=== PATIENT | female | born 1940 | race Caucasian/White ===

== ENCOUNTER 2016-08-24 | Outpatient (CLI) | payer MEDICARE, OTHER | END 2016-08-24 11:45 | disposition home or self-care (01) | DX: R42 Dizziness and giddiness (principal) ==

== ENCOUNTER 2016-09-28 | Outpatient (CLI) | payer MEDICARE, OTHER | END 2016-09-28 22:00 | disposition critical access hospital (66) | DX: F41.9 Anxiety disorder, unspecified (principal) | CPT/HCPCS: A0425; A0429 ==

== ENCOUNTER 2016-09-28 13:41 | Outpatient (CLI) | payer MEDICARE, OTHER | END 2016-09-28 13:42 | disposition home or self-care (01) | DX: E11.9 Type 2 diabetes mellitus without complications (principal); E55.9 Vitamin D deficiency, unspecified ==

== ENCOUNTER 2016-09-28 22:19 | Emergency (ER) | payer MEDICARE, OTHER | END 2016-09-28 23:55 | disposition home or self-care (01) | DX: R42 Dizziness and giddiness (principal); T44.3X5A Adverse effect of other parasympatholytics [anticholinergics and antimuscarinics] and spasmolytics, initial encounter; F41.0 Panic disorder [episodic paroxysmal anxiety]; E11.9 Type 2 diabetes mellitus without complications; I10 Essential (primary) hypertension; Z79.4 Long term (current) use of insulin; Z86.73 Personal history of transient ischemic attack (TIA), and cerebral infarction without residual deficits; E55.9 Vitamin D deficiency, unspecified ==

== ENCOUNTER 2016-10-15 13:30 | Outpatient (CLI) | payer MEDICARE, OTHER | END 2016-10-15 13:31 | disposition home or self-care (01) | DX: Z12.31 Encounter for screening mammogram for malignant neoplasm of breast (principal) ==

== ENCOUNTER 2016-10-30 13:46 | Outpatient (CLI) | payer MEDICARE, OTHER | END 2016-10-30 13:47 | disposition home or self-care (01) | DX: I77.9 Disorder of arteries and arterioles, unspecified (principal); I73.9 Peripheral vascular disease, unspecified; I70.1 Atherosclerosis of renal artery; I10 Essential (primary) hypertension; E78.2 Mixed hyperlipidemia ==

== ENCOUNTER 2016-11-08 08:36 | Outpatient (CLI) | payer MEDICARE, OTHER | END 2016-11-08 08:37 | disposition home or self-care (01) | DX: I77.9 Disorder of arteries and arterioles, unspecified (principal); I10 Essential (primary) hypertension; I73.9 Peripheral vascular disease, unspecified; I70.1 Atherosclerosis of renal artery; E78.2 Mixed hyperlipidemia ==

== ENCOUNTER 2017-01-01 13:20 | Outpatient (CLI) | payer MEDICARE, OTHER ==
[2017-01-01 19:52] LABS: CALCIUM 9.2 mg/dL (8.5-10.3); CREATININE 0.7 mg/dL (0.4-1.0); POTASSIUM 3.8 mmol/L (3.5-5.0)
[2017-01-01 19:55] LABS: HEMOGLOBIN A1C 0.81 g/dL
== END 2017-01-01 13:21 | disposition home or self-care (01) ==
LOC: LAB.N 13:20
PROVIDERS: ATTEND Family Medicine
DX: E11.9 Type 2 diabetes mellitus without complications (principal)
CPT/HCPCS: 36415; 80048; 83036

== ENCOUNTER 2017-02-18 20:26 | Outpatient (CLI) | payer MEDICARE, OTHER ==
[2017-02-18 19:23] LABS: CREATININE 0.6 mg/dL (0.4-1.0)
== END 2017-02-18 20:27 | disposition home or self-care (01) ==
LOC: LAB.N 20:26
PROVIDERS: ATTEND Psychiatry & Neurology Neurology
DX: G43.719 Chronic migraine without aura, intractable, without status migrainosus (principal); M79.2 Neuralgia and neuritis, unspecified; H81.10 Benign paroxysmal vertigo, unspecified ear; I65.21 Occlusion and stenosis of right carotid artery; T88.7XXA Unspecified adverse effect of drug or medicament, initial encounter
CPT/HCPCS: 36415; 82565; 84520

== ENCOUNTER 2017-03-29 14:35 | Outpatient (CLI) | payer MEDICARE, OTHER ==
[2017-03-29 18:41] LABS: CREATININE 0.8 mg/dL (0.4-1.0)
[2017-03-29] MEDS ORDERED: IOPAMIDOL-300 100 ML VIAL IVP ONE (20:12)
--- NOTE | 2017-03-30 07:28 | CT Preliminary Report ---
Exam: CT Neck Angio Impressions: CT angiogram head: 1. Left ICA: Patent. Mild scattered calcific atherosclerotic disease without significant stenosis. 2. Right ICA: Patent, mild scattered calcific atherosclerotic disease. Short segment critical stenosi s 2.5 mm in length right M1 mid distal segment. Otherwise patent MCA, DARÍO. 3. Posterior circulation: Patent. 4. No aneurysm, dissection, or AVM. 5. Patent major draining veins. CT angiogram neck: 1. Left carotid artery: Patent with mild calcific atherosclerotic disease, no stenosis. 2. Right carotid artery: Patent, mild dense calcific atherosclerotic disease, 21% stenosis proximal I CA. 3. Bilateral vertebral arteries are patent. 4. No aneurysm, dissection, no significant stenosis, no AVM. 5. Multiple hypodense nodules within bilateral thyroid, thyroid not enlarged. Largest nodule in the l eft 1.4 cm, can be evaluated by ultrasound. Remaining soft tissue neck negative. [facility] SITE ID: [id number]
--- NOTE | 2017-03-30 07:31 | CT Report ---
EXAM: CT ANGIOGRAM HEAD AND NECK EXAM DATE: 03/29/2017 08:13 PM. CLINICAL HISTORY: STENOSIS OF RIGHT CAROTID ARTERY. COMPARISON: Prior carotid ultrasound 06/23/2016, prior MRI brain 06/23/2016, prior CT study had 06/22, prior MRA neck 01/10/2015. TECHNIQUE: Routine axial helical CTA imaging was performed from the aortic arch through the [place]. Iodinated IV contrast: 100 cc Isovue-300. Reconstructions: Routine multiplanar 3D MIP recons tructions. NASCET Criteria are used for stenosis measurements. In accordance with CT protocol optimization, one or more of the following dose reduction techniques w ere utilized for this exam: automated exposure control, adjustment of mA and/or KV based on patient s ize, or use of iterative reconstructive technique. Findings: Relevant images are indicated (image number, series number). CT angiogram head: Left ICA: Patent. Mild scattered calcific atherosclerotic disease. No significant stenosis. Patent MC A, DARÍO distribution. Right ICA: Patent. Mild scattered calcific atherosclerotic disease, otherwise patent to the terminus. Right MCA demonstrates mid distal multifocal narrowing, with suspected short segment near (493, 2) c ritical stenosis measuring 2.5 mm in length. 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 CT angiogram neck: Aortic arch is patent, normal configuration of the great vessels. Mild scattered calcific atheroscler otic disease. Left carotid artery: Patent, mildly dense calcific atherosclerotic disease at the bulb, proximal ICA, otherwise patent to the skull base. Right carotid artery: Patent to the carotid bulb. There is 21% focal stenosis of the proximal ICA, ot herwise patent. Lethargy were artery: Proximal tortuosity, widely patent. Right vertebral artery: Patent. Limited evaluation lung apices negative with only mild scattered centrilobular emphysema. Multiple hy podense nodules within the bilateral thyroid lobes left greater than right, the largest in the left m easuring 1.4 cm diameter. Airway patent, remaining soft tissue neck negative. Mild multilevel cervica l, upper thoracic spine spondylosis, no suspicious bony lesions. There is generalized osteopenia. Pat ient is partially edentulous. Impressions: CT angiogram head: 1. Left ICA: Patent. Mild scattered calcific atherosclerotic disease without significant stenosis. 2. Right ICA: Patent, mild scattered calcific atherosclerotic disease. Short segment critical stenosi s 2.5 mm in length right M1 mid distal segment. Otherwise patent MCA, DARÍO. 3. Posterior circulation: Patent. 4. No aneurysm, dissection, or AVM. 5. Patent major draining veins. CT angiogram neck: 1. Left carotid artery: Patent with mild calcific atherosclerotic disease, no stenosis. 2. Right carotid artery: Patent, mild dense calcific atherosclerotic disease, 21% stenosis proximal I CA. 3. Bilateral vertebral arteries are patent. 4. No aneurysm, dissection, no significant stenosis, no AVM. 5. Multiple hypodense nodules within bilateral thyroid, thyroid not enlarged. Largest nodule in the l eft 1.4 cm, can be evaluated by ultrasound. Remaining soft tissue neck negative. [facility] Referring Provider Line: [phone] SITE ID: [id number]
--- NOTE | 2017-03-30 07:32 | CT Preliminary Report ---
Exam: CT Head Angio Impressions: Noncontrast CT head: 1. 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 Postcontrast CT head: 1. No abnormal enhancement of the brain, meninges. CT angiogram head: 1. Left ICA: Patent. Mild scattered calcific atherosclerotic disease without significant stenosis. 2. Right ICA: Patent, mild scattered calcific atherosclerotic disease. Short segment critical stenosi s 2.5 mm in length right M1 mid distal segment. Otherwise patent MCA, DARÍO. 3. Posterior circulation: Patent. 4. No aneurysm, dissection, or AVM. 5. Patent major draining veins. CT angiogram neck: 1. Left carotid artery: Patent with mild calcific atherosclerotic disease, no stenosis. 2. Right carotid artery: Patent, mild dense calcific atherosclerotic disease, 21% stenosis proximal I CA. 3. Bilateral vertebral arteries are patent. 4. No aneurysm, dissection, no significant stenosis, no AVM. 5. Multiple hypodense nodules within bilateral thyroid, thyroid not enlarged. Largest nodule in the l eft 1.4 cm, can be evaluated by ultrasound. Remaining soft tissue neck negative. [facility] SITE ID: [id number]
--- NOTE | 2017-03-30 07:35 | CT Report ---
EXAM: CT ANGIOGRAM HEAD AND NECK EXAM DATE: 03/29/2017 08:13 PM. CLINICAL HISTORY: STENOSIS OF RIGHT CAROTID ARTERY. COMPARISON: Prior carotid ultrasound 06/23/2016, prior MRI brain 06/23/2016, prior CT study had 06/22, prior MRA neck 01/10/2015. TECHNIQUE: Routine axial helical CTA imaging was performed from the aortic arch through the [place]. Iodinated IV contrast: 100 cc Isovue-300. Reconstructions: Routine multiplanar 3D MIP recons tructions. NASCET Criteria are used for stenosis measurements. In accordance with CT protocol optimization, one or more of the following dose reduction techniques w ere utilized for this exam: automated exposure control, adjustment of mA and/or KV based on patient s ize, or use of iterative reconstructive technique. Findings: Relevant images are indicated (image number, series number). Noncontrast CT head: Compared with CT head 06/22/2016, no interval development of hemorrhage, mass or midline shift. Old l eft internal capsule stroke present. Moderate dense scattered periventricular, subcortical white jonah er disease. Minimal generalized atrophy, mild compensatory ventricular enlargement. No acute arterial thrombosis of the major intracranial arteries. Basal cisterns patent. Orbital contents negative, pat ient status post bilateral lens surgery. Bilateral mastoid air cells are clear. Skull base intact. Mi nimal dense calcific atherosclerotic disease present. Mild hyperostosis frontalis internus. Generaliz ed osteopenia, skull intact with no suspicious bony lesions. Postcontrast CT head: No abnormal enhancement of the brain, meninges. CT angiogram head: Left ICA: Patent. Mild scattered calcific atherosclerotic disease. No significant stenosis. Patent MC A, DARÍO distribution. Right ICA: Patent. Mild scattered calcific atherosclerotic disease, otherwise patent to the terminus. Right MCA demonstrates mid distal multifocal narrowing, with suspected short segment near (493, 2) c ritical stenosis measuring 2.5 mm in length. 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 CT angiogram neck: Aortic arch is patent, normal configuration of the great vessels. Mild scattered calcific atheroscler otic disease. Left carotid artery: Patent, mildly dense calcific atherosclerotic disease at the bulb, proximal ICA, otherwise patent to the skull base. Right carotid artery: Patent to the carotid bulb. There is 21% focal stenosis of the proximal ICA, ot herwise patent. Lethargy were artery: Proximal tortuosity, widely patent. Right vertebral artery: Patent. Limited evaluation lung apices negative with only mild scattered centrilobular emphysema. Multiple hy podense nodules within the bilateral thyroid lobes left greater than right, the largest in the left m easuring 1.4 cm diameter. Airway patent, remaining soft tissue neck negative. Mild multilevel cervica l, upper thoracic spine spondylosis, no suspicious bony lesions. There is generalized osteopenia. Pat ient is partially edentulous. Impressions: Noncontrast CT head: 1. 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 Postcontrast CT head: 1. No abnormal enhancement of the brain, meninges. CT angiogram head: 1. Left ICA: Patent. Mild scattered calcific atherosclerotic disease without significant stenosis. 2. Right ICA: Patent, mild scattered calcific atherosclerotic disease. Short segment critical stenosi s 2.5 mm in length right M1 mid distal segment. Otherwise patent MCA, DARÍO. 3. Posterior circulation: Patent. 4. No aneurysm, dissection, or AVM. 5. Patent major draining veins. CT angiogram neck: 1. Left carotid artery: Patent with mild calcific atherosclerotic disease, no stenosis. 2. Right carotid artery: Patent, mild dense calcific atherosclerotic disease, 21% stenosis proximal I CA. 3. Bilateral vertebral arteries are patent. 4. No aneurysm, dissection, no significant stenosis, no AVM. 5. Multiple hypodense nodules within bilateral thyroid, thyroid not enlarged. Largest nodule in the l eft 1.4 cm, can be evaluated by ultrasound. Remaining soft tissue neck negative. [facility] Referring Provider Line: [phone] SITE ID: [id number]
== END 2017-03-29 14:36 | disposition home or self-care (01) ==
LOC: DI 14:35
PROVIDERS: ATTEND Psychiatry & Neurology Neurology
DX: I65.21 Occlusion and stenosis of right carotid artery (principal); E04.2 Nontoxic multinodular goiter
CPT/HCPCS: 36415; 70496; 70498; 82565; 84520; Q9967

== ENCOUNTER 2017-04-02 08:00 | Outpatient (CLI) | payer MEDICARE, OTHER ==
[2017-04-02 14:27] LABS: ALBUMIN/GLOBULIN RATIO 1.5 (1.0-2.2); BILIRUBIN,TOTAL 0.6 mg/dL (0.2-1.0); BUN - BLOOD UREA NITROGEN 22 mg/dL (6-20); CALCIUM 9.3 mg/dL (8.5-10.3); CARBON DIOXIDE - CO2 29 mmol/L (21-32); CHLORIDE 104 mmol/L (101-111); CHOL/HDL RATIO 4.7 (<4.4); CHOLESTEROL 146 mg/dL; CREATININE 0.6 mg/dL (0.4-1.0); GFR - MDRD 97 (>89); GLUCOSE 176 mg/dL (70-100); HDL CHOLESTEROL 31 mg/dL; LDL/HDL RATIO 2.1 (<4.4); POTASSIUM 3.5 mmol/L (3.5-5.0); SODIUM 142 mmol/L (135-145); TOTAL PROTEIN 7.9 g/dL (6.7-8.2); TRIGLYCERIDES 243 mg/dL; VLDL CHOLESTEROL 49 mg/dL
[2017-04-02 14:41] LABS: BASOPHILS % (AUTO) 0.4 %; EOSINOPHILS # (AUTO) 0.1 10^3/uL (0.0-0.7); EOSINOPHILS % (AUTO) 1.3 %; HCT - HEMATOCRIT 39.1 % (37.0-47.0); HGB - HEMOGLOBIN 13.1 g/dL (12.0-16.0); LYMPHOCYTES # (AUTO) 1.7 10^3/uL (1.5-3.5); LYMPHOCYTES % (AUTO) 23.9 %; MEAN CORPUSCULAR HEMOGLOBIN 28.3 pg (27.0-31.0); MEAN CORPUSCULAR HGB CONC 33.4 g/dL (32.0-36.0); MEAN CORPUSCULAR VOLUME 84.6 fL (81.0-99.0); MEAN PLATELET VOLUME 8.2 fL (7.9-10.8); MONOCYTES # (AUTO) 0.4 10^3/uL (0.0-1.0); MONOCYTES % (AUTO) 5.7 %; NEUTROPHILS # (AUTO) 4.8 10^3/uL (1.5-6.6); NEUTROPHILS % (AUTO) 68.7 %; NUCLEATED RED BLOOD CELLS AUTO 0.1 /100WBC; RED BLOOD COUNT 4.62 10^6/uL (4.20-5.40); RED CELL DISTRIBUTION WIDTH 13.5 % (12.0-15.0); UNCORRECTED WHITE BLOOD COUNT 6.9 x10^3/uL; WHITE BLOOD COUNT 6.9 x10^3/uL (4.8-10.8)
== END 2017-04-02 08:01 | disposition home or self-care (01) ==
LOC: LAB.N 08:00
PROVIDERS: ATTEND Family Medicine
DX: E11.9 Type 2 diabetes mellitus without complications (principal); E55.9 Vitamin D deficiency, unspecified; E78.1 Pure hyperglyceridemia
CPT/HCPCS: 36415; 80053; 80061; 82306; 83036; 85025

== ENCOUNTER 2017-07-24 14:20 | Outpatient (CLI) | payer MEDICARE, OTHER ==
[2017-07-24 14:17] LABS: HEMOGLOBIN A1C 0.84 g/dL
[2017-07-24 15:42] LABS: BUN - BLOOD UREA NITROGEN 25 mg/dL (6-20); CARBON DIOXIDE - CO2 25 mmol/L (21-32); CHLORIDE 107 mmol/L (101-111); CREATININE 0.7 mg/dL (0.4-1.0); GFR - MDRD 81 (>89); GLUCOSE 113 mg/dL (70-100); POTASSIUM 3.6 mmol/L (3.5-5.0); SODIUM 141 mmol/L (135-145)
== END 2017-07-24 14:21 | disposition home or self-care (01) ==
LOC: LAB.N 14:20
PROVIDERS: ATTEND Family Medicine
DX: E11.9 Type 2 diabetes mellitus without complications (principal); I10 Essential (primary) hypertension
CPT/HCPCS: 36415; 80048; 83036; 84443

== ENCOUNTER 2017-08-09 14:35 | Outpatient (CLI) | payer MEDICARE, OTHER ==
--- NOTE | 2017-08-10 08:32 | Ultrasound Preliminary Report ---
Exam: US CAROTID DOPPLER COMPLETE IMPRESSION: Stable carotid Doppler study. Antegrade blood flow both vertebral arteries. 50-69 percent diameter reduction right internal carotid artery with less than 50% diameter reduction left internal carotid. No hemodynamically significant stenosis. Incidental note made of 2 cm solid left thyroid nodule. Complete thyroid ultrasound recommended for f ollow-up, if this has not been done previously. Validated velocity measurements with angiographic measurements and velocity criteria are extrapolated from diameter data as defined by the Society of Radiologists in Ultrasound Consensus Conference Radi ology 2003; 229;340-346. [facility] SITE ID: [id number]
--- NOTE | 2017-08-10 08:50 | Ultrasound Report ---
EXAM: CAROTID/VERTEBRAL DOPPLER ULTRASOUND EXAM DATE: 08/09/2017 04:59 PM. CLINICAL HISTORY: 77-year-old female with essential hypertension and bilateral carotid artery disease . COMPARISON: CT angiogram of the head and neck of 03/29/2017. Carotid/vertebral Doppler ultrasound ashley dy of 06/23/2016. TECHNIQUE: Real-time sonographic vascular imaging was performed by the head of academic technology through the caroti d arterial system with a linear transducer utilizing color-flow, Doppler flow and spectral analysis. Multiple paper sales representative static images were saved for review. FINDINGS: Antegrade blood flow both vertebral arteries. Mild atherosclerotic plaque both carotid systems with slightly greater amount of plaque on the left. Right: RCCA Prox: PSV 94 cm/sec. RCCA Dist: PSV 83 cm/sec, EDV 11 cm/sec. RECA: PSV 147 cm/sec. R Bulb: PSV 105 cm/sec, EDV 13 cm/sec, ICA/CCA ratio 1.26. GOLDY Prox: PSV 141 cm/sec, EDV 13 cm/sec, ICA/CCA ratio 1.69. GOLDY Mid: PSV 116 cm/sec, EDV 14 cm/sec, ICA/CCA ratio 1.39. GOLDY Dist: PSV 105 cm/sec, EDV 14 cm/sec, ICA/CCA ratio 1.26. RVA: PSV 49 cm/sec. RVA flow direction: Antegrade. Left: LCCA Prox: PSV 91 cm/sec. LCCA Dist: PSV 74 cm/sec, EDV 14 cm/sec. LECA: PSV 75 cm/sec. L Bulb: PSV 87 cm/sec, EDV 14 cm/sec, ICA/CCA ratio 1.17. LICA Prox: PSV 60 cm/sec, EDV 13 cm/sec. ICA/CCA ratio 0.81. LICA Mid: PSV 65 cm/sec, EDV 14 cm/sec, ICA/CCA ratio 0.87. LICA Dist: PSV 72 cm/sec, EDV 12 cm/sec, ICA/CCA ratio 0.97. LVA: PSV 25 cm/sec. LVA flow direction: Antegrade. Other: Incidental note made of hypoechoic left thyroid nodule, solid in appearance, 2 x 1.4 x 1.6 cm in diameter. IMPRESSION: 1. Stable carotid Doppler study. 2. Antegrade blood flow both vertebral arteries. 3. 50-69% diameter reduction right internal carotid artery with less than 50% diameter reduction left internal carotid. No hemodynamically significant stenosis. 4. Incidental note made of 2 cm solid left thyroid nodule. Complete thyroid ultrasound recommended fo r follow-up, if this has not been done previously. Validated velocity measurements with angiographic measurements and velocity criteria are extrapolated from diameter data as defined by the Society of Radiologists in Ultrasound Consensus Conference Radi ology 2003; 229;340-346. [facility] Referring Provider Line: [phone] SITE ID: [id number]
== END 2017-08-09 14:36 | disposition home or self-care (01) ==
LOC: DI 14:35
PROVIDERS: ATTEND Internal Medicine Cardiovascular Disease
DX: I65.23 Occlusion and stenosis of bilateral carotid arteries (principal)
CPT/HCPCS: 93880

== ENCOUNTER 2017-08-31 10:57 | Outpatient (CLI) | payer MEDICARE, OTHER ==
--- NOTE | 2017-08-31 23:08 | Ultrasound Report ---
EXAM: THYROID ULTRASOUND EXAM DATE: 08/31/2017 11:57 AM. CLINICAL HISTORY: Left thyroid nodule. COMPARISON: CT 03/29/2017. TECHNIQUE: Real time sonographic imaging of the thyroid was performed by the media planner. Multiple re presentative static images were saved for review. FINDINGS: THYROID GLAND: Right Lobe: 4.0 x 1.9 x 2.0 cm, volume 7.9 cc. Diffusely heterogeneous. Right Lobe Nodules: 2 cystic abnormalities, upper medial thyroid 0.6 x 0.3 x 0.6 cm with small chemist intern al nodule and peripheral vascularity, mid to lower lateral thyroid, 0.7 x 0.5 x 0.6 cm. Left Lobe: 4.2 x 1.7 x 2.6 cm, volume 9.7 cc. Diffusely heterogeneous. Left Lobe Nodules: Upper pole cystic abnormality with internal nodule 1.0 x 0.5 x 0.8 cm. Dominant no dule lower pole, hypoechoic with well-defined margins and peripheral vascularity, 2.1 x 1.3 x 1.6 cm, corresponding to the CT abnormality. Isthmus: 0.3 cm AP. Isthmic Nodules: None. LYMPH NODES: No adenopathy demonstrated in the central or lateral compartment. OTHER: None. IMPRESSION: Heterogeneous thyroid with dominant left inferior pole nodule of intermediate suspicion o ledy 2 cm size. Consider FNA. Management recommendations are based on 2015 [place] [employer] Management Guidelines for A dult Patients with Thyroid Nodules and Differentiated Thyroid Cancer. [facility] Referring Provider Line: [phone] SITE ID: [id number]
== END 2017-08-31 10:58 | disposition home or self-care (01) ==
LOC: DI 10:57
PROVIDERS: ATTEND Family Medicine
DX: E04.1 Nontoxic single thyroid nodule (principal)
CPT/HCPCS: 76536

== ENCOUNTER 2017-11-11 13:25 | Outpatient (CLI) | payer MEDICARE, OTHER ==
--- NOTE | 2017-11-11 15:33 | Ultrasound Report ---
FINE NEEDLE ASPIRATION LEFT LOBE OF THYROID: 11/11/2017 CLINICAL INDICATION: A 2.2 cm nodule left lobe of the thyroid. FINDINGS: Following obtaining informed consent, the patient's left neck was prepped and draped in the usual sterile fashion. The skin and soft tissues were anesthetized with lidocaine. Four 22-gauge fine needle aspirations were performed under ultrasound guidance. Needle washings were submitted to pathology in [facility]. The patient tolerated the procedure well. No immediate complications. IMPRESSION: SUCCESSFUL FINE NEEDLE ASPIRATION OF LEFT THYROID NODULE. AWAIT PATHOLOGY REPORT. TD: 11/11/2017 15:32
[2017-11-11] MEDS ORDERED: LIDOCAINE 1% 10 ML MDV SUBQ ONE (15:49)
[2017-11-11 17:04] VITALS: BP 150/50
== END 2017-11-11 13:26 | disposition home or self-care (01) ==
LOC: DI 13:25
PROVIDERS: ATTEND Surgery
DX: E04.1 Nontoxic single thyroid nodule (principal)
CPT/HCPCS: 10022; 76942

== ENCOUNTER 2017-11-19 10:26 | Outpatient (CLI) | payer MEDICARE, OTHER ==
[2017-11-19 12:20] LABS: BASOPHILS % (AUTO) 0.4 %; EOSINOPHILS # (AUTO) 0.1 10^3/uL (0.0-0.7); EOSINOPHILS % (AUTO) 1.1 %; HGB - HEMOGLOBIN 12.1 g/dL (12.0-16.0); LYMPHOCYTES # (AUTO) 1.8 10^3/uL (1.5-3.5); LYMPHOCYTES % (AUTO) 24.7 %; MEAN CORPUSCULAR HEMOGLOBIN 28.4 pg (27.0-31.0); MEAN CORPUSCULAR HGB CONC 33.8 g/dL (32.0-36.0); MEAN PLATELET VOLUME 7.9 fL (7.9-10.8); MONOCYTES # (AUTO) 0.5 10^3/uL (0.0-1.0); MONOCYTES % (AUTO) 7.1 %; NEUTROPHILS % (AUTO) 66.7 %; PLT - PLATELET COUNT 321 10^3/uL (130-450); RED BLOOD COUNT 4.27 10^6/uL (4.20-5.40); RED CELL DISTRIBUTION WIDTH 13.4 % (12.0-15.0); WHITE BLOOD COUNT 7.5 x10^3/uL (4.8-10.8)
[2017-11-19 12:33] LABS: ALBUMIN 4.4 g/dL (3.2-5.5); ALBUMIN/GLOBULIN RATIO 1.6 (1.0-2.2); ALKALINE PHOSPHATASE 30 IU/L (42-121); ALT ALANINE AMINOTRANSFERASE 17 IU/L (10-60); AST ASPARTATE AMINOTRANSFERASE 17 IU/L (10-42); BILIRUBIN,TOTAL 0.6 mg/dL (0.2-1.0); BUN - BLOOD UREA NITROGEN 25 mg/dL (6-20); CARBON DIOXIDE - CO2 28 mmol/L (21-32); CHLORIDE 103 mmol/L (101-111); CHOLESTEROL 155 mg/dL; CREATININE 0.8 mg/dL (0.4-1.0); GFR - MDRD 69 (>89); GLUCOSE 159 mg/dL (70-100); HB2 TOTAL 12.9 g/dL; HDL CHOLESTEROL 26 mg/dL; HEMOGLOBIN A1C 0.9 g/dL; HEMOGLOBIN A1C % 8.5 % (4.6-6.2); LDL CHOLESTEROL,CALCULATED 75 mg/dL; LDL/HDL RATIO 2.9 (<4.4); LIPASE 19 U/L (22-51); SODIUM 139 mmol/L (135-145); TOTAL PROTEIN 7.2 g/dL (6.7-8.2); VLDL CHOLESTEROL 54 mg/dL
== END 2017-11-19 10:27 | disposition home or self-care (01) ==
LOC: LAB.N 10:26
PROVIDERS: ATTEND Family Medicine
DX: R10.11 Right upper quadrant pain (principal); I25.10 Atherosclerotic heart disease of native coronary artery without angina pectoris; E11.9 Type 2 diabetes mellitus without complications
CPT/HCPCS: 36415; 80053; 80061; 83036; 83690; 83721; 85025

== ENCOUNTER 2017-12-06 08:00 | Outpatient (CLI) | payer MEDICARE, OTHER ==
[2017-12-06 19:09] LABS: BILIRUBIN,URINE NEGATIVE (NEGATIVE); GLUCOSE, URINE (UA) NEGATIVE (NEGATIVE); KETONES,URINE (UA) NEGATIVE (NEGATIVE); LEUKOCYTE ESTERASE, URINE NEGATIVE (NEGATIVE); NITRITE,URINE NEGATIVE (NEGATIVE); OCCULT BLOOD,URINE NEGATIVE (NEGATIVE); PH,URINE 6.5 PH (5.0-7.5); PROTEIN,URINE NEGATIVE (NEGATIVE); UROBILINOGEN,URINE 0.2 (NORMAL) E.U./dL (NORMAL)
[2017-12-06 19:13] LABS: CLARITY,URINE CLEAR (CLEAR)
[2017-12-06 19:18] LABS: BACTERIA,URINE Moderate /HPF (None Seen); RBC,URINE 0-5 /HPF (0-5); SQUAMOUS EPITHELIAL CELL,UR RARE Squamous (<= Few)
== END 2017-12-06 08:01 | disposition home or self-care (01) ==
LOC: LAB.N 08:00
PROVIDERS: ATTEND Family Medicine
DX: R30.0 Dysuria (principal)
CPT/HCPCS: 81001; 87086

== ENCOUNTER 2018-01-01 08:00 | Outpatient (CLI) | payer MEDICARE, OTHER ==
[2018-01-01 19:34] LABS: CALCIUM 8.9 mg/dL (8.5-10.3); CREATININE 0.7 mg/dL (0.4-1.0)
== END 2018-01-01 08:01 ==
LOC: LAB.N 08:00
PROVIDERS: ATTEND Internal Medicine Cardiovascular Disease
DX: I77.9 Disorder of arteries and arterioles, unspecified (principal); I10 Essential (primary) hypertension; E78.2 Mixed hyperlipidemia
CPT/HCPCS: 36415; 80048

== ENCOUNTER 2018-02-27 08:00 | Outpatient (CLI) | payer MEDICARE, OTHER ==
[2018-02-27 19:18] LABS: CALCIUM 9.3 mg/dL (8.5-10.3); CREATININE 0.8 mg/dL (0.4-1.0)
[2018-02-27 19:23] LABS: HB2 TOTAL 12.9 g/dL; HEMOGLOBIN A1C 0.9 g/dL; HEMOGLOBIN A1C % 8.5 % (4.6-6.2)
== END 2018-02-27 08:01 | disposition home or self-care (01) ==
LOC: LAB.N 08:00
PROVIDERS: ATTEND Family Medicine
DX: E11.65 Type 2 diabetes mellitus with hyperglycemia (principal); Z79.4 Long term (current) use of insulin
CPT/HCPCS: 36415; 80048; 83036

== ENCOUNTER 2018-06-04 08:57 | Outpatient (CLI) | payer MEDICARE, OTHER ==
[2018-06-04 13:19] LABS: ALBUMIN 4.1 g/dL (3.2-5.5); ALBUMIN/GLOBULIN RATIO 1.5 (1.0-2.2); ALKALINE PHOSPHATASE 32 IU/L (42-121); ALT ALANINE AMINOTRANSFERASE 19 IU/L (10-60); AST ASPARTATE AMINOTRANSFERASE 14 IU/L (10-42); BILIRUBIN,TOTAL 0.5 mg/dL (0.2-1.0); BUN - BLOOD UREA NITROGEN 27 mg/dL (6-20); CARBON DIOXIDE - CO2 31 mmol/L (21-32); CHLORIDE 102 mmol/L (101-111); CHOL/HDL RATIO 5.9 (<4.4); CHOLESTEROL 184 mg/dL; CREATININE 0.8 mg/dL (0.4-1.0); GFR - MDRD 69 (>89); GLUCOSE 184 mg/dL (70-100); HDL CHOLESTEROL 31 mg/dL; LDL CHOLESTEROL,CALCULATED 105 mg/dL; LDL/HDL RATIO 3.4 (<4.4); SODIUM 140 mmol/L (135-145); TOTAL PROTEIN 6.9 g/dL (6.7-8.2); VLDL CHOLESTEROL 48 mg/dL
[2018-06-04 13:48] LABS: HB2 TOTAL 12.3 g/dL; HEMOGLOBIN A1C 0.76 g/dL; HEMOGLOBIN A1C % 7.8 % (4.6-6.2)
== END 2018-06-04 08:58 | disposition home or self-care (01) ==
LOC: LAB.N 08:57
PROVIDERS: ATTEND Family Medicine
DX: E78.5 Hyperlipidemia, unspecified (principal); E11.65 Type 2 diabetes mellitus with hyperglycemia; E78.1 Pure hyperglyceridemia; Z79.4 Long term (current) use of insulin
CPT/HCPCS: 36415; 80053; 80061; 83036; 83721

== ENCOUNTER 2018-09-08 08:00 | Outpatient (CLI) | payer MEDICARE, OTHER ==
[2018-09-08 13:37] LABS: HB2 TOTAL 13.6 g/dL; HEMOGLOBIN A1C 0.74 g/dL; HEMOGLOBIN A1C % 7.1 % (4.6-6.2)
[2018-09-08 14:12] LABS: CALCIUM 9.5 mg/dL (8.5-10.3); CREATININE 0.7 mg/dL (0.4-1.0)
== END 2018-09-08 23:59 | disposition home or self-care (01) ==
LOC: LAB.N 08:00
PROVIDERS: ATTEND Family Medicine
DX: E11.65 Type 2 diabetes mellitus with hyperglycemia (principal)
CPT/HCPCS: 36415; 80048; 83036

== ENCOUNTER 2018-11-28 14:12 | Outpatient (CLI) | payer MEDICARE, OTHER ==
[2018-11-28 18:59] LABS: CALCIUM 9.1 mg/dL (8.5-10.3); CREATININE 0.7 mg/dL (0.4-1.0)
== END 2018-11-28 14:13 | disposition home or self-care (01) ==
LOC: LAB.N 14:12
PROVIDERS: ATTEND Internal Medicine Cardiovascular Disease
DX: I10 Essential (primary) hypertension (principal)
CPT/HCPCS: 36415; 80048

== ENCOUNTER 2018-12-09 13:36 | Outpatient (CLI) | payer MEDICARE, OTHER ==
--- NOTE | 2018-12-10 00:16 | Ultrasound Report ---
Reason: BILATERAL CAROTID ARTERY STENOSIS Procedure Date: 12/09/2018 Accession Number: [id number] / [id number] Procedure: US - Carotid Doppler Complete CPT Code: FULL RESULT: EXAM: BILATERAL CAROTID AND VERTEBRAL ARTERY DUPLEX DOPPLER ULTRASOUND. EXAM DATE: 12/09/2018 02:02 PM CLINICAL HISTORY: Bilateral carotid artery stenosis. COMPARISON: CAROTID DOPPLER COMPLETE 08/09/2017 2:46 PM. TECHNIQUE: Grayscale imaging, color Doppler, and duplex spectral Doppler were used to evaluate the carotid and vertebral arteries bilaterally. Static images were obtained. FINDINGS: Patient has known thyroid nodules, not well imaged on current study. Refer to the most recent study performed 08/31/2017 for additional details. Mild to moderate atheromatous plaques are present in the right carotid bulb extending into the internal carotid artery. However, no hemodynamically significant stenoses are noted. Mild atheromatous plaques are present in the left carotid bulb extending into the internal carotid artery. However, no hemodynamically significant stenoses are noted. Visualized portions of the neck soft tissues are grossly unremarkable. Normal antegrade flow is present in bilateral vertebral arteries. VELOCITIES (cm/sec): Right CCA mid: PSV 71.6 cm/sec CCA dist: PSV 61.0 cm/sec ICA prox: PSV 111.6 cm/sec, EDV 15.8 cm/sec ICA mid: PSV 105.5 cm/sec, EDV 15.8 cm/sec ICA dist: PSV 64.0 cm/sec, EDV 20.0 cm/sec ECA: PSV 130.2 cm/sec Vert: PSV 50.4 cm/sec ICA/CCA: 1.83 Left CCA mid: PSV 85.4 cm/sec CCA dist: PSV 84.7 cm/sec ICA prox: PSV 94.5 cm/sec, EDV 19.6 cm/sec ICA mid: PSV 84.0 cm/sec, EDV 18.9 cm/sec ICA dist: PSV 94.5 cm/sec, EDV 33.6 cm/sec ECA: PSV 107.8 cm/sec Vert: PSV 50.5 cm/sec ICA/CCA: 1.12 ICA diameter stenosis: Right: <50% by velocity and <70% by NASCET criteria. Left: <50% by velocity and <70% by NASCET criteria. IMPRESSION: 1. Mild to moderate right and mild left carotid artery plaquing. 2. In the right carotid artery there are no elevated carotid artery velocities to suggest hemodynamically significant stenosis. 3. In the left carotid artery there are no elevated carotid artery velocities to suggest hemodynamically significant stenosis. 4. Normal antegrade flow is present in bilateral vertebral arteries. General Recommendations: Stenosis =50% ICA - Follow-up ultrasound 6-12 months Stenosis <50% ICA - High Risk Patient with plaque - Follow-up ultrasound 1-2 years Normal Study but High Risk Patient - Follow-up ultrasound 3-5 years Management recommendations and diagnostic criteria are based on current IAC endorsed standards in Carotid Artery Stenosis: Grayscale and Doppler Ultrasound Diagnosis. Validated velocity measurements with angiographic measurements and velocity criteria are extrapolated from diameter data as defined by the Society of Radiologists in Ultrasound Consensus Conference Radiology 2003; 229;340-346. [facility]
== END 2018-12-09 13:37 | disposition home or self-care (01) ==
LOC: DI 13:36
PROVIDERS: ATTEND Internal Medicine Cardiovascular Disease
DX: I65.23 Occlusion and stenosis of bilateral carotid arteries (principal)
CPT/HCPCS: 93880

== ENCOUNTER 2018-12-22 17:49 | Emergency (ER) | payer MEDICARE, OTHER ==
--- NOTE | 2018-12-22 18:59 | ED Physician Documentation ---
History of Present Illness - Stated complaint Stated Complaint: INCREASED BS - Chief complaint Chief Complaint: General - History obtained from History obtained from: Patient - History of Present Illness Timing: Today (This is a haleigh 78-year-old woman with diabetes who is on sliding scale insulin and land this at night who presents with elevated blood sugars today. She also had elevated blood sugars the other day but yesterday and the day before she had fairly normal blood sugars. She feels fine without any illnesses. She like to increase her insulin and would like guidance on that.) Review of Systems Constitutional: denies: Fever, Chills Ears: denies: Ear pain, Drainage/discharge Nose: denies: Rhinorrhea / runny nose Cardiac: denies: Chest pain / pressure, Palpitations PD PAST MEDICAL HISTORY - Past Medical History Cardiovascular: Hypertension, High cholesterol Respiratory: None Endocrine/Autoimmune: Type 2 diabetes GI: None : Incontinence, Frequency HEENT: Chronic vision loss, Chronic hearing loss Psych: Anxiety, Panic attacks Musculoskeletal: Osteoporosis Derm: None - Past Surgical History Past Surgical History: Yes General: Cholecystectomy Ortho: Carpal Tunnel surgery /[employer]BER: Hysterectomy HEENT: Cataracts Derm: Skin cancer surgery - Present Medications Home Medications: Ambulatory Orders Medication Instructions Recorded Confirmed EPINEPHrine [Epipen] 0.3 mg IM ONCE PRN 07/23/13 09/28/16 Lisinopril 20 mg PO BID 07/23/13 09/28/16 [place]-3/Dha/Epa/Fish Oil [Fish Oil 2 each PO BID 05/20/14 09/28/16 1,000 mg Softgel] Amlodipine Besylate 10 mg PO DAILY 09/15/14 09/28/16 Fenofibrate 150 mg PO DAILY 09/15/14 09/28/16 Insulin Aspart [Novolog Flexpen] 3 unit SQ TID 09/15/14 09/28/16 Insulin Glargine,Hum.rec.anlog 22 unit SQ QPM 09/15/14 09/28/16 [Lantus] Cholecalciferol (Vitamin D3) 1,000 unit PO DAILY 06/23/16 09/28/16 [Vitamin D3] Clopidogrel [Plavix] 75 mg PO DAILY 06/23/16 09/28/16 Clopidogrel [Plavix] 75 mg PO DAILY tablet 06/23/16 09/28/16 Metoprolol Tartrate [Lopressor] 50 mg PO BID 06/23/16 09/28/16 Pravastatin [Pravachol] 40 mg PO QPM tablet 06/23/16 09/28/16 cloNIDine HCl [Clonidine HCl] 0.1 mg PO BID 06/23/16 09/28/16 traMADol [Ultram] 25 mg PO Q8H PRN #20 tablet 07/19/16 09/28/16 Tolterodine Tartrate [Detrol LA] 4 mg PO DAILY 09/28/16 09/28/16 - Allergies Allergies/Adverse Reactions: Allergies Allergy/AdvReac Type Severity Reaction Status Date / Time acetaminophen Allergy Unknown unk Verified 09/28/16 22:23 [From Tylenol-Codeine #3] amitriptyline Allergy Unknown unk Verified 09/28/16 22:23 amoxicillin [Amoxicillin] Allergy Unknown Emesis Verified 09/28/16 22:23 cefadroxil [Cefadroxil] Allergy Unknown Emesis Verified 09/28/16 22:23 ciprofloxacin [From Cipro] Allergy Unknown Emesis Verified 09/28/16 22:23 codeine phosphate * Allergy Unknown unk Verified 09/28/16 22:23 [From Tylenol-Codeine #3] cyclobenzaprine HCl * Allergy Unknown unk Verified 09/28/16 22:23 [From Flexeril] diazepam [From Valium] Allergy Unknown unk Verified 09/28/16 22:23 diphenhydramine HCl * Allergy Unknown unk Verified 09/28/16 22:23 [From Benadryl] doxepin [Doxepin] Allergy Unknown unk Verified 09/28/16 22:23 erythromycin base Allergy Unknown unk Verified 09/28/16 22:23 [Erythromycin Base] fluvastatin sodium * Allergy Unknown unk Verified 09/28/16 22:23 [From Lescol] hydrocodone bitartrate * Allergy Unknown unk Verified 09/28/16 22:23 [From Vicodin] ibuprofen [From Motrin] Allergy Unknown unk Verified 09/28/16 22:23 latex Allergy Unknown unk Verified 09/28/16 22:23 levofloxacin [From Levaquin] Allergy Unknown unk Verified 09/28/16 22:23 Penicillins Allergy Unknown unk Verified 09/28/16 22:23 prochlorperazine maleate * Allergy Unknown unk Verified 09/28/16 22:23 [From Compazine] saccharomyces boulardii * Allergy Unknown unk Verified 09/28/16 22:23 [From Florastor] solifenacin succinate * Allergy Unknown unk Verified 09/28/16 22:23 [From Vesicare] sulfamethoxazole Allergy Unknown Emesis Verified 09/28/16 22:23 [From Bactrim] tizanidine HCl * Allergy Unknown unk Verified 09/28/16 22:23 [From Zanaflex] trimethoprim [From Bactrim] Allergy Unknown Emesis Verified 09/28/16 22:23 venom-honey bee Allergy Anaphylaxis Verified 09/28/16 22:23 [bee venom (honey bee)] - Social History Does the pt smoke?: No Smoking Status: Never smoker Does the pt drink ETOH?: No Does the pt have substance abuse?: No - Immunizations Immunizations are current?: Yes - POLST Patient has POLST: No PD ED PE NORMAL - Vitals Vital signs reviewed: Yes - General General: Alert and oriented X 3, No acute distress - Neuro Neuro: Alert and oriented X 3, nematology teacher 2-12 intact, Normal speech - Psych Psych: Normal mood, Normal affect Results - Vitals Vitals: Vital Signs - 24 hr 12/22/18 17:55 Temperature 36.8 C Heart Rate 82 Respiratory 18 Rate Blood Pressure 173/65 H O2 Saturation 97 Oxygen O2 Source [With Activity] Room air O2 Source [Without Activity] Room air O2 Source Room air - Labs Labs: Laboratory Tests 12/22/18 17:57 POC Whole Bld Glucose 233 H PD MEDICAL DECISION MAKING - ED course ED course: She has occasional high blood sugars. As such I did not want to increase her Lantus. She takes Lantus at night and looking at her logs it seems like she runs the higher blood sugars mid and late day, not early in the day. I told her she could increase her base dose of Humalog to 8 units on the sliding scale pending PCP follow-up, she is currently at 6 units. Departure - Departure Disposition: 01 Home, Self Care Clinical Impression: Diabetes mellitus out of control Qualifiers: Diabetes mellitus type: type 2 Glycemic state: with hyperglycemia Qualified Code(s): E11.65 - Type 2 diabetes mellitus with hyperglycemia Condition: Good Record reviewed to determine appropriate education?: Yes Comments: You can increase your base dose of the Humalog to 8 units on the sliding scale when your blood sugars are greater than 200. Otherwise make no changes right now pending primary care follow-up. Follow-up with Dr. NOEL as soon as possible.
[2018-12-22 19:15] VITALS: BP 108/94
== END 2018-12-22 19:15 | disposition home or self-care (01) ==
LOC: ED 17:49
DX: E11.65 Type 2 diabetes mellitus with hyperglycemia (principal); I10 Essential (primary) hypertension; Z79.4 Long term (current) use of insulin
CPT/HCPCS: 99283

== ENCOUNTER 2019-02-02 08:00 | Outpatient (CLI) | payer MEDICARE, OTHER ==
[2019-02-02 13:46] LABS: BASOPHILS % (AUTO) 0.4 %; EOSINOPHILS # (AUTO) 0.1 10^3/uL (0.0-0.7); EOSINOPHILS % (AUTO) 1.1 %; LYMPHOCYTES # (AUTO) 1.8 10^3/uL (1.5-3.5); LYMPHOCYTES % (AUTO) 21.7 %; MEAN CORPUSCULAR HEMOGLOBIN 28.2 pg (27.0-31.0); MEAN CORPUSCULAR HGB CONC 33.5 g/dL (32.0-36.0); MEAN CORPUSCULAR VOLUME 84.3 fL (81.0-99.0); MEAN PLATELET VOLUME 8.1 fL (7.9-10.8); MONOCYTES # (AUTO) 0.5 10^3/uL (0.0-1.0); NEUTROPHILS # (AUTO) 5.7 10^3/uL (1.5-6.6); NEUTROPHILS % (AUTO) 70.8 %; PLT - PLATELET COUNT 324 10^3/uL (130-450); RED BLOOD COUNT 4.59 10^6/uL (4.20-5.40); RED CELL DISTRIBUTION WIDTH 13.3 % (12.0-15.0); WHITE BLOOD COUNT 8.1 x10^3/uL (4.8-10.8)
[2019-02-02 14:06] LABS: ALBUMIN 4.3 g/dL (3.2-5.5); ALBUMIN/GLOBULIN RATIO 1.4 (1.0-2.2); ALKALINE PHOSPHATASE 50 IU/L (42-121); ALT ALANINE AMINOTRANSFERASE 21 IU/L (10-60); AST ASPARTATE AMINOTRANSFERASE 15 IU/L (10-42); BILIRUBIN,TOTAL 0.8 mg/dL (0.2-1.0); BUN - BLOOD UREA NITROGEN 23 mg/dL (6-20); CALCIUM 9.5 mg/dL (8.5-10.3); CARBON DIOXIDE - CO2 29 mmol/L (21-32); CHLORIDE 102 mmol/L (101-111); CHOL/HDL RATIO 4.6 (<4.4); CHOLESTEROL 124 mg/dL; CREATININE 0.6 mg/dL (0.4-1.0); GFR - MDRD 96 (>89); GLUCOSE 123 mg/dL (70-100); HDL CHOLESTEROL 27 mg/dL; LDL CHOLESTEROL,CALCULATED 54 mg/dL; SODIUM 143 mmol/L (135-145); TOTAL PROTEIN 7.3 g/dL (6.7-8.2); VLDL CHOLESTEROL 43 mg/dL
[2019-02-02 14:19] LABS: HB2 TOTAL 13.3 g/dL; HEMOGLOBIN A1C 0.84 g/dL; HEMOGLOBIN A1C % 7.9 % (4.6-6.2)
== END 2019-02-02 23:59 | disposition home or self-care (01) ==
LOC: LAB.N 08:00
PROVIDERS: ATTEND Family Medicine
DX: E11.65 Type 2 diabetes mellitus with hyperglycemia (principal); E78.1 Pure hyperglyceridemia; E04.1 Nontoxic single thyroid nodule; I10 Essential (primary) hypertension; E78.5 Hyperlipidemia, unspecified
CPT/HCPCS: 36415; 80053; 80061; 83036; 83721; 84443; 85025

== ENCOUNTER 2019-02-13 06:29 | Outpatient (CLI) | payer MEDICARE, OTHER | END 2019-02-13 06:30 | disposition critical access hospital (66) | LOC: EMS 06:29 | PROVIDERS: ATTEND Surgery | DX: R42 Dizziness and giddiness (principal) | CPT/HCPCS: A0425; A0429 ==

== ENCOUNTER 2019-02-13 06:48 | Emergency (ER) | payer MEDICARE, OTHER ==
[2019-02-13 07:22] LABS: BASOPHILS % (AUTO) 0.4 %; EOSINOPHILS # (AUTO) 0.1 10^3/uL (0.0-0.7); EOSINOPHILS % (AUTO) 0.8 %; LYMPHOCYTES # (AUTO) 1.6 10^3/uL (1.5-3.5); LYMPHOCYTES % (AUTO) 18.5 %; MEAN CORPUSCULAR HEMOGLOBIN 28.2 pg (27.0-31.0); MEAN CORPUSCULAR HGB CONC 32.9 g/dL (32.0-36.0); MEAN CORPUSCULAR VOLUME 85.9 fL (81.0-99.0); MEAN PLATELET VOLUME 9.3 fL (7.9-10.8); MONOCYTES # (AUTO) 0.5 10^3/uL (0.0-1.0); NEUTROPHILS # (AUTO) 6.2 10^3/uL (1.5-6.6); NEUTROPHILS % (AUTO) 74.1 %; PLT - PLATELET COUNT 301 10^3/uL (130-450); RED BLOOD COUNT 4.25 10^6/uL (4.20-5.40); RED CELL DISTRIBUTION WIDTH 12.7 % (12.0-15.0); WHITE BLOOD COUNT 8.4 x10^3/uL (4.8-10.8)
[2019-02-13 07:38] LABS: ALBUMIN 3.8 g/dL (3.2-5.5); ALBUMIN/GLOBULIN RATIO 1.3 (1.0-2.2); BILIRUBIN,TOTAL 0.6 mg/dL (0.2-1.0); CALCIUM 9.1 mg/dL (8.5-10.3); CREATININE 0.6 mg/dL (0.4-1.0); TOTAL PROTEIN 6.8 g/dL (6.7-8.2)
--- NOTE | 2019-02-13 07:58 | ED Physician Documentation ---
History of Present Illness - Stated complaint Stated Complaint: DIZZY - Chief complaint Chief Complaint: Neuro - History obtained from History obtained from: Patient - Additonal information Additional information: Patient is a 78-year-old female with complicated past medical history including anxiety, diabetes, vertigo presenting with feeling "dizzy". Patient reports that this happens intermittently and it happened again last night and this morning. Patient denies near syncope, syncope, fall, or trauma. Patient denies any new associated symptoms such as new vision loss, headache, vomiting, ab dominal pain, difficulty breathing, chest pain, urinary or stool changes. Patient does admit to feeling vaguely nauseous. Patient states that she took 6 units of insulin prior to EMS arrival, but has not yet eaten. No other improving or worsening factors noted. Review of Systems Constitutional: denies: Fever Eyes: denies: Loss of vision Cardiac: denies: Chest pain / pressure Respiratory: denies: Dyspnea GI: reports: Nausea. denies: Abdominal Pain, Vomiting, Diarrhea Neurologic: denies: Near syncope, Syncope, Headache PD PAST MEDICAL HISTORY - Past Medical History Past Medical History: Yes Cardiovascular: Hypertension, High cholesterol Respiratory: None Neuro: None Endocrine/Autoimmune: Type 2 diabetes GI: None FISHER DIVER NET: None : Incontinence, Frequency HEENT: Chronic vision loss, Chronic hearing loss Psych: Anxiety, Panic attacks Musculoskeletal: Osteoporosis Derm: None - Past Surgical History Past Surgical History: Yes General: Cholecystectomy Ortho: Carpal Tunnel surgery /FISHER DIVER NET: Hysterectomy HEENT: Cataracts Derm: Skin cancer surgery - Present Medications Home Medications: Ambulatory Orders Medication Instructions Recorded Confirmed EPINEPHrine [Epipen] 0.3 mg IM ONCE PRN 07/23/13 09/28/16 Lisinopril 30 mg PO BID 07/23/13 09/28/16 [place]-3/Dha/Epa/Fish Oil [Fish Oil 2 each PO BID 05/20/14 09/28/16 1,000 mg Softgel] Amlodipine Besylate 10 mg PO DAILY 09/15/14 09/28/16 Fenofibrate 150 mg PO DAILY 09/15/14 09/28/16 Insulin Aspart [Novolog Flexpen] 3 unit SQ TID 09/15/14 09/28/16 Insulin Glargine,Hum.rec.anlog 30 unit SQ QPM 09/15/14 09/28/16 [Lantus] Cholecalciferol (Vitamin D3) 1,000 unit PO DAILY 06/23/16 09/28/16 [Vitamin D3] Clopidogrel [Plavix] 75 mg PO DAILY tablet 06/23/16 09/28/16 cloNIDine HCl [Clonidine HCl] 0.1 mg PO 06/23/16 09/28/16 Propranolol [Inderal] 20 mg BID 02/13/19 02/13/19 Simvastatin 10 mg PO QPM 02/13/19 02/13/19 Spironolactone 25 mg DAILY 02/13/19 02/13/19 - Allergies Allergies/Adverse Reactions: Allergies Allergy/AdvReac Type Severity Reaction Status Date / Time acetaminophen Allergy Unknown unk Verified 02/13/19 07:30 [From Tylenol-Codeine #3] amitriptyline Allergy Unknown unk Verified 02/13/19 07:30 amoxicillin [Amoxicillin] Allergy Unknown Emesis Verified 02/13/19 07:30 cefadroxil [Cefadroxil] Allergy Unknown Emesis Verified 02/13/19 07:30 ciprofloxacin [From Cipro] Allergy Unknown Emesis Verified 02/13/19 07:30 codeine phosphate * Allergy Unknown unk Verified 02/13/19 07:30 [From Tylenol-Codeine #3] cyclobenzaprine HCl * Allergy Unknown unk Verified 02/13/19 07:30 [From Flexeril] diazepam [From Valium] Allergy Unknown unk Verified 02/13/19 07:30 diphenhydramine HCl * Allergy Unknown unk Verified 02/13/19 07:30 [From Benadryl] doxepin [Doxepin] Allergy Unknown unk Verified 02/13/19 07:30 erythromycin base Allergy Unknown unk Verified 02/13/19 07:30 [Erythromycin Base] fluvastatin sodium * Allergy Unknown unk Verified 02/13/19 07:30 [From Lescol] hydrocodone bitartrate * Allergy Unknown unk Verified 02/13/19 07:30 [From Vicodin] ibuprofen [From Motrin] Allergy Unknown unk Verified 02/13/19 07:30 latex Allergy Unknown unk Verified 02/13/19 07:30 levofloxacin [From Levaquin] Allergy Unknown unk Verified 02/13/19 07:30 Penicillins Allergy Unknown unk Verified 02/13/19 07:30 prochlorperazine maleate * Allergy Unknown unk Verified 02/13/19 07:30 [From Compazine] saccharomyces boulardii * Allergy Unknown unk Verified 02/13/19 07:30 [From Florastor] solifenacin succinate * Allergy Unknown unk Verified 02/13/19 07:30 [From Vesicare] sulfamethoxazole Allergy Unknown Emesis Verified 02/13/19 07:30 [From Bactrim] tizanidine HCl * Allergy Unknown unk Verified 02/13/19 07:30 [From Zanaflex] trimethoprim [From Bactrim] Allergy Unknown Emesis Verified 02/13/19 07:30 venom-honey bee Allergy Anaphylaxis Verified 02/13/19 07:30 [bee venom (honey bee)] - Social History Does the pt smoke?: No Smoking Status: Never smoker Does the pt drink ETOH?: No Does the pt have substance abuse?: No - Immunizations Immunizations are current?: Yes - POLST Patient has POLST: No PD ED PE NORMAL - Vitals Vital signs reviewed: Yes - General General: Alert and oriented X 3, No acute distress, Well developed/nourished, Other (Sitting on bedside commode) - HEENT HEENT: Atraumatic, Moist mucous membranes - Neck Neck: No bony TTP - Cardiac Cardiac: RRR, No murmur - Respiratory Respiratory: No respiratory distress, Clear bilaterally - Back Back: No spinal TTP - Derm Derm: Normal color, Warm and dry, No rash - Extremities Extremities: No deformity, No tenderness to palpate - Neuro Neuro: Alert and oriented X 3, No motor deficit, No sensory deficit - Psych Psych: Normal mood (Slightly anxious), Normal affect Results - Vitals Vitals: Vital Signs - 24 hr 02/13/19 02/13/19 02/13/19 06:52 08:58 09:38 Temperature 36.0 C L Heart Rate 70 74 68 Respiratory 18 18 18 Rate Blood Pressure 147/80 H 118/83 H 159/57 H O2 Saturation 98 99 96 02/13/19 10:29 Temperature Heart Rate 68 Respiratory 16 Rate Blood Pressure 138/93 H O2 Saturation 97 Oxygen O2 Source [] Room air O2 Source [] Room air O2 Source Room air - EKG (time done) 0847 Rate: Rate (enter#) (70) Rhythm: NSR - Labs Labs: Laboratory Tests 02/13/19 02/13/19 02/13/19 07:16 07:16 07:16 WBC 8.4 RBC 4.25 Hgb 12.0 Hct 36.5 L MCV 85.9 MCH 28.2 MCHC 32.9 RDW 12.7 Plt Count 301 MPV 9.3 Neut # (Auto) 6.2 Lymph # (Auto) 1.6 [place] # (Auto) 0.5 Eos # (Auto) 0.1 Baso # (Auto) 0.0 Absolute Nucleated RBC 0.00 Nucleated RBC % 0.0 Sodium 143 Potassium 3.2 L Chloride 107 Carbon Dioxide 24 Anion Gap 12.0 BUN 29 H Creatinine 0.6 Estimated GFR (MDRD) 96 Glucose 184 H Calcium 9.1 Total Bilirubin 0.6 AST 16 ALT 18 Alkaline Phosphatase 42 Troponin I < 0.04 Total Protein 6.8 Albumin 3.8 Globulin 3.0 Albumin/Globulin Ratio 1.3 Lipase 34 TSH Urine Color Urine Clarity Urine pH Ur Specific Hood Urine Protein Urine Glucose (UA) Urine Ketones Urine Occult Blood Urine Nitrite Urine Bilirubin Urine Urobilinogen Ur Leukocyte Esterase Ur Microscopic Review Urine Culture Comments 02/13/19 02/13/19 07:16 Unknown WBC RBC Hgb Hct MCV MCH MCHC RDW Plt Count MPV Neut # (Auto) Lymph # (Auto) [place] # (Auto) Eos # (Auto) Baso # (Auto) Absolute Nucleated RBC Nucleated RBC % Sodium Potassium Chloride Carbon Dioxide Anion Gap BUN Creatinine Estimated GFR (MDRD) Glucose Calcium Total Bilirubin AST ALT Alkaline Phosphatase Troponin I Total Protein Albumin Globulin Albumin/Globulin Ratio Lipase TSH 1.73 Urine Color YELLOW Urine Clarity CLEAR Urine pH 7.5 Ur Specific Hood 1.010 Urine Protein NEGATIVE Urine Glucose (UA) NEGATIVE Urine Ketones NEGATIVE Urine Occult Blood NEGATIVE Urine Nitrite NEGATIVE Urine Bilirubin NEGATIVE Urine Urobilinogen 0.2 (NORMAL) Ur Leukocyte Esterase NEGATIVE Ur Microscopic Review NOT INDICATED Urine Culture Comments NOT INDICATED PD MEDICAL DECISION MAKING - ED course Complexity details: reviewed old records, reviewed results, re-evaluated patient, considered differential, d/w patient ED course: Patient presenting with complaints of vertigo, which is a chronic issue for her. At this time, patient is currently ultimately asymptomatic. Physical exam is rather unremarkable with no signs of trauma, new neurological deficit, or obvious systemic infection. Patient using the bedside commode and tolerating oral intake. Patient did require medications while in the ED, but screening lab work, urinalysis, and EKG obtained. Low suspicion for cardiac disease such as ACS, MS, unstable angina, dissection, aneurysm, but considered. EKG did not show evidence of acute ischemia and troponin within normal limits. Screening lab work also returned relatively unremarkable with no obvious signs of new significant anemia, electrolyte disturbance, acute kidney injury, or other complications. Urinalysis did not find presence of blood or infection.Do not feel patient requires imaging or other testing at this time, particularly given lack of concern for stroke, intracranial mass or injury, or other central cause of vertigo. Patient has ride available for home and feel that she is safe to discharge. Discussed return precautions, continue medications at home, supportive cares, and follow-up. Departure - Departure Disposition: 01 Home, Self Care Clinical Impression: Vertigo Condition: Good Instructions: ED BPV Vertigo Follow-Up: your,doctor [Other] - Within 3 Days Comments: Please continue all home medications as previously instructed. Recommend hydration, healthy diet, rest, and follow-up with your primary care physician in next 2 to 3 days. Return to ED sooner if experience worsening symptoms or have other concerns.
[2019-02-13 10:30] VITALS: BP 138/93
[2019-02-13 10:37] LABS: BILIRUBIN,URINE NEGATIVE (NEGATIVE); CLARITY,URINE CLEAR (CLEAR); GLUCOSE, URINE (UA) NEGATIVE (NEGATIVE); KETONES,URINE (UA) NEGATIVE (NEGATIVE); LEUKOCYTE ESTERASE, URINE NEGATIVE (NEGATIVE); NITRITE,URINE NEGATIVE (NEGATIVE); OCCULT BLOOD,URINE NEGATIVE (NEGATIVE); PH,URINE 7.5 PH (5.0-7.5); PROTEIN,URINE NEGATIVE (NEGATIVE); UROBILINOGEN,URINE 0.2 (NORMAL) E.U./dL (NORMAL)
== END 2019-02-13 11:05 | disposition home or self-care (01) ==
LOC: EDUNIT# → ED 06:48
DX: R42 Dizziness and giddiness (principal); I10 Essential (primary) hypertension; E11.9 Type 2 diabetes mellitus without complications; Z79.4 Long term (current) use of insulin
CPT/HCPCS: 36415; 80053; 81001; 81003; 83690; 84443; 84484; 85025; 87086; 93005; 99283; 99284

== ENCOUNTER 2019-03-30 08:00 | Outpatient (CLI) | payer MEDICARE, OTHER ==
[2019-03-30 12:17] LABS: CALCIUM 9.4 mg/dL (8.5-10.3); CREATININE 0.6 mg/dL (0.4-1.0)
[2019-03-30 12:22] LABS: CREATININE,URINE 22.6 mg/dL; MICROALBUM/CREATININE RATIO,UR 39.8 ug/mg (<30.0); MICROALBUMIN,URINE 0.9 mg/dL (0-300.0)
[2019-03-30 16:28] LABS: HB2 TOTAL 12.9 g/dL; HEMOGLOBIN A1C 0.77 g/dL; HEMOGLOBIN A1C % 7.6 % (4.6-6.2)
== END 2019-03-30 23:59 | disposition home or self-care (01) ==
LOC: LAB.N 08:00
PROVIDERS: ATTEND Family Medicine
DX: E11.8 Type 2 diabetes mellitus with unspecified complications (principal)
CPT/HCPCS: 36415; 80048; 82043; 82570; 83036

== ENCOUNTER 2019-04-08 15:15 | Outpatient (CLI) | payer MEDICARE, OTHER | END 2019-04-08 23:59 | LOC: LAB.R 15:15 | PROVIDERS: ATTEND Family Medicine | DX: R39.9 Unspecified symptoms and signs involving the genitourinary system (principal) | CPT/HCPCS: 87086 ==

== ENCOUNTER 2019-06-12 13:48 | Emergency (ER) | payer MEDICARE, OTHER ==
--- NOTE | 2019-06-12 13:56 | ED Physician Documentation ---
History of Present Illness - Stated complaint Stated Complaint: SOA/CHEST DISCOMFORT - Additonal information Additional information: This is an 79-year-old female with a history of a past stroke who presents with cough and general malaise. Patient states that she began feeling "cold" 2 weeks ago, she is in a trailer and states that she has had issues with its heater. She also developed some cough and some mild chest discomfort after coughing over the last 24 hours. She has had a walking pneumonia in the past and she is concerned that she is developing pneumonia again, so she presented here for evaluation. She denies fever, vomiting, any history of blood clots, leg swel ling. Review of Systems Constitutional: denies: Fever Nose: denies: Rhinorrhea / runny nose Cardiac: reports: Chest pain / pressure Respiratory: reports: Cough GI: denies: Abdominal Pain : denies: Dysuria Skin: denies: Rash Neurologic: reports: Generalized weakness Immunocompromised: denies: Immunocompromised PD PAST MEDICAL HISTORY - Past Medical History Cardiovascular: Hypertension, High cholesterol Respiratory: None Neuro: None Endocrine/Autoimmune: Type 2 diabetes GI: None JOURNEYMAN MOLDER: None : Incontinence, Frequency HEENT: Chronic vision loss, Chronic hearing loss Psych: Anxiety, Panic attacks Musculoskeletal: Osteoporosis Derm: None - Past Surgical History Past Surgical History: Yes General: Cholecystectomy Ortho: Carpal Tunnel surgery /JOURNEYMAN MOLDER: Hysterectomy HEENT: Cataracts Derm: Skin cancer surgery - Present Medications Home Medications: Ambulatory Orders Medication Instructions Recorded Confirmed EPINEPHrine [Epipen] 0.3 mg IM ONCE PRN 07/23/13 04/08/19 Lisinopril 30 mg PO BID 07/23/13 04/08/19 [place]-3/Dha/Epa/Fish Oil [Fish Oil 2 each PO BID 05/20/14 04/08/19 1,000 mg Softgel] Amlodipine Besylate 10 mg PO DAILY 09/15/14 04/08/19 Fenofibrate 160 mg PO DAILY 09/15/14 04/08/19 Insulin Aspart [Novolog Flexpen] 3 - 12 unit SQ TID 09/15/14 04/08/19 Insulin Glargine,Hum.rec.anlog 30 unit SQ QPM 09/15/14 04/08/19 [Lantus] Cholecalciferol (Vitamin D3) 1,000 unit PO DAILY 06/23/16 04/08/19 [Vitamin D3] Clopidogrel [Plavix] 75 mg PO DAILY tablet 06/23/16 04/08/19 cloNIDine HCl [Clonidine HCl] 0.1 mg PO TID 06/23/16 04/08/19 Propranolol [Inderal] 20 mg PO BID 02/13/19 04/08/19 Spironolactone 25 mg PO DAILY 02/13/19 04/08/19 Atorvastatin Calcium 40 mg PO DAILY 04/08/19 04/08/19 Lactobacillus Acidophilus 1 each PO DAILY 04/08/19 04/08/19 [Probiotic Acidophilus] Magnesium 250 mg PO DAILY 04/08/19 04/08/19 Multivitamin/Iron/Folic Acid 1 each PO DAILY 04/08/19 04/08/19 [Centrum Adults Tablet] Ubidecarenone [Co Q10] 200 mg PO DAILY 04/08/19 04/08/19 Benzonatate [Tessalon Perle] 100 - 200 mg PO TID PRN #30 capsule 06/12/19 - Allergies Allergies/Adverse Reactions: Allergies Allergy/AdvReac Type Severity Reaction Status Date / Time acetaminophen Allergy Unknown unk Verified 06/12/19 14:00 [From Tylenol-Codeine #3] amitriptyline Allergy Unknown unk Verified 06/12/19 14:00 amoxicillin [Amoxicillin] Allergy Unknown Emesis Verified 06/12/19 14:00 cefadroxil [Cefadroxil] Allergy Unknown Emesis Verified 06/12/19 14:00 ciprofloxacin [From Cipro] Allergy Unknown Emesis Verified 06/12/19 14:00 codeine phosphate * Allergy Unknown unk Verified 06/12/19 14:00 [From Tylenol-Codeine #3] cyclobenzaprine HCl * Allergy Unknown unk Verified 06/12/19 14:00 [From Flexeril] diazepam [From Valium] Allergy Unknown unk Verified 06/12/19 14:00 diphenhydramine HCl * Allergy Unknown unk Verified 06/12/19 14:00 [From Benadryl] doxepin [Doxepin] Allergy Unknown unk Verified 06/12/19 14:00 erythromycin base Allergy Unknown unk Verified 06/12/19 14:00 [Erythromycin Base] fluvastatin sodium * Allergy Unknown unk Verified 06/12/19 14:00 [From Lescol] hydrocodone bitartrate * Allergy Unknown unk Verified 06/12/19 14:00 [From Vicodin] ibuprofen [From Motrin] Allergy Unknown unk Verified 06/12/19 14:00 latex Allergy Unknown unk Verified 06/12/19 14:00 levofloxacin [From Levaquin] Allergy Unknown unk Verified 06/12/19 14:00 Penicillins Allergy Unknown unk Verified 06/12/19 14:00 prochlorperazine maleate * Allergy Unknown unk Verified 06/12/19 14:00 [From Compazine] saccharomyces boulardii * Allergy Unknown unk Verified 06/12/19 14:00 [From Florastor] solifenacin succinate * Allergy Unknown unk Verified 06/12/19 14:00 [From Vesicare] sulfamethoxazole Allergy Unknown Emesis Verified 06/12/19 14:00 [From Bactrim] tizanidine HCl * Allergy Unknown unk Verified 06/12/19 14:00 [From Zanaflex] trimethoprim [From Bactrim] Allergy Unknown Emesis Verified 06/12/19 14:00 venom-honey bee Allergy Anaphylaxis Verified 02/13/19 07:30 [bee venom (honey bee)] - Social History Does the pt smoke?: No Smoking Status: Never smoker Does the pt drink ETOH?: No Does the pt have substance abuse?: No - Immunizations Immunizations are current?: Yes - POLST Patient has POLST: No PD ED PE NORMAL - Vitals Vital signs reviewed: Yes - General General: Alert and oriented X 3, No acute distress - HEENT HEENT: PERRL - Neck Neck: Supple, no meningeal sign - Cardiac Cardiac: RRR - Respiratory Respiratory: Clear bilaterally - Abdomen Abdomen: Soft, Non tender, Non distended - Derm Derm: Warm and dry - Extremities Extremities: No deformity - Neuro Neuro: Alert and oriented X 3 - Psych Psych: Normal mood, Normal affect Results - Vitals Vitals: Vital Signs - 24 hr 06/12/19 06/12/19 06/12/19 13:57 14:08 15:39 Temperature 36.9 C 36.6 C Heart Rate 72 75 68 Respiratory 22 16 12 Rate Blood Pressure 138/47 H 136/70 H 159/62 H O2 Saturation 97 99 97 Oxygen O2 Source [] Room air O2 Source [] Room air O2 Source Room air - EKG (time done) 14:01 Other comments: Other comments (Rate 69, rhythm sinus, is no ST segment elevation or depression, no abnormal T wave inversions. There is a PVC.) - Labs Labs: Laboratory Tests 06/12/19 06/12/19 06/12/19 14:22 14:22 14:22 WBC 9.1 RBC 4.27 Hgb 12.5 Hct 37.6 MCV 88.1 MCH 29.3 MCHC 33.2 RDW 13.2 Plt Count 303 MPV 9.3 Neut # (Auto) 6.8 H Lymph # (Auto) 1.7 [place] # (Auto) 0.5 Eos # (Auto) 0.0 Baso # (Auto) 0.0 Absolute Nucleated RBC 0.00 Nucleated RBC % 0.0 Sodium 142 Potassium 3.6 Chloride 105 Carbon Dioxide 29 Anion Gap 8.0 BUN 17 Creatinine 0.6 Estimated GFR (MDRD) 96 Glucose 139 H Calcium 9.6 Total Bilirubin 1.0 AST 25 ALT 28 Alkaline Phosphatase 45 Troponin I High Sens 11.5 Total Protein 7.4 Albumin 4.3 Globulin 3.1 Albumin/Globulin Ratio 1.4 Lipase 41 - Rads (name of study) CXR Radiology: Other (Unremarkable chest, No pneumonia, CHF or other demonstrated cause for pain.) PD MEDICAL DECISION MAKING - ED course Complexity details: other (Pneumonia, URI, pneumothorax, pleural effusion, pulmonary embolism, ACS) ED course: On exam patient is well-appearing, EKG shows a PVC, no signs of ischemia or dysrhythmia. Chest x-ray is unremarkable. No signs of pneumonia on the chest x-ray, labs, or patient's physical exam. Unlikely PE given normal heart rate and oxygen saturation, no pleuritic component to pain, no signs of DVT, no history of blood clots. Unlikely ACS given negative troponin in the setting of >6 hours of unchanged symptoms, And unremarkable EKG. I discussed our work-up with the patient, explaining her work-up is overall reassuring, and I do have a suspicion for a upper respiratory infection. I discussed supportive care, close PCP follow-up, and strict return precautions to the emergency department with new or worsening symptoms. Patient and her daughter in agreement, patient was discharged home in her care. Departure - Departure Disposition: Home, Self Care Clinical Impression: Chest pain Qualifiers: Chest pain type: unspecified Qualified Code(s): R07.9 - Chest pain, unspecified Condition: Good Instructions: ED Chest Pain Atypical Unkn Cause Follow-Up: KARI NOLAN MD [Primary Care Provider] - Within 1 week Prescriptions: Benzonatate [Tessalon Perle] 100 - 200 mg PO TID PRN #30 capsule PRN Reason: Cough Comments: You are seen today for some chest discomfort, we do not see signs of pneumonia today. I also do not see signs of strain on your heart at this time, or other obvious cause of your symptoms. Please follow closely with your primary care provider if you are developing shortness of breath, increasing or changing chest pain, coughing up blood, or other concerning symptoms, return to the emergency department. Discharge Date/Time: 06/12/19 15:40
[2019-06-12 14:34] LABS: BASOPHILS % (AUTO) 0.3 %; EOSINOPHILS % (AUTO) 0.3 %; HGB - HEMOGLOBIN 12.5 g/dL (12.0-16.0); LYMPHOCYTES # (AUTO) 1.7 10^3/uL (1.5-3.5); LYMPHOCYTES % (AUTO) 18.3 %; MEAN CORPUSCULAR HEMOGLOBIN 29.3 pg (27.0-31.0); MEAN CORPUSCULAR HGB CONC 33.2 g/dL (32.0-36.0); MEAN CORPUSCULAR VOLUME 88.1 fL (81.0-99.0); MEAN PLATELET VOLUME 9.3 fL (7.9-10.8); MONOCYTES # (AUTO) 0.5 10^3/uL (0.0-1.0); MONOCYTES % (AUTO) 5.9 %; NEUTROPHILS # (AUTO) 6.8 10^3/uL (1.5-6.6); PLT - PLATELET COUNT 303 10^3/uL (130-450); RED BLOOD COUNT 4.27 10^6/uL (4.20-5.40); RED CELL DISTRIBUTION WIDTH 13.2 % (12.0-15.0); WHITE BLOOD COUNT 9.1 x10^3/uL (4.8-10.8)
[2019-06-12 14:50] LABS: ALBUMIN 4.3 g/dL (3.2-5.5); ALBUMIN/GLOBULIN RATIO 1.4 (1.0-2.2); CALCIUM 9.6 mg/dL (8.5-10.3); CREATININE 0.6 mg/dL (0.4-1.0); TOTAL PROTEIN 7.4 g/dL (6.7-8.2)
--- NOTE | 2019-06-12 15:01 | XRAY Report ---
Reason: chest pain Procedure Date: 06/12/2019 Accession Number: [id number] / [id number] Procedure: XR - Chest 1 View X-Ray CPT Code: 31109 FULL RESULT: EXAM: CHEST RADIOGRAPHY, PORTABLE 1 VIEW EXAM DATE: 06/12/2019 02:31 PM. CLINICAL HISTORY: Chest pain in an 79-year-old female with history of walking pneumonia. COMPARISON: CHEST 1 VIEW 01/09/2015 5:42 PM. TECHNIQUE: 1411 hour AP upright portable view. FINDINGS: Lungs/Pleura: No focal opacities evident. No pleural effusion. No pneumothorax. Moderately suboptimal inspiratory effort. Mediastinum: Upper range of normal heart size. No adenopathy or pulmonary vascular congestion. Other: Trachea is midline. Osseous structures are unremarkable. IMPRESSION: Unremarkable chest for age, body size and inspiratory effort. No pneumonia, CHF or other demonstrated cause for chest pain. RADIA
[2019-06-12 15:40] VITALS: BP 159/62
== END 2019-06-12 15:40 | disposition home or self-care (01) ==
LOC: ED 13:48
DX: R07.9 Chest pain, unspecified (principal); I10 Essential (primary) hypertension; E11.9 Type 2 diabetes mellitus without complications; Z79.4 Long term (current) use of insulin
CPT/HCPCS: 36415; 71045; 80053; 83690; 84484; 85025; 93005; 99283; 99284

== ENCOUNTER 2019-06-30 11:24 | Outpatient (CLI) | payer MEDICARE, OTHER ==
[2019-06-30 19:52] LABS: THYROID STIMULATING HORMONE 1.86 uIU/mL (0.34-5.60)
[2019-06-30 19:54] LABS: FREE T4 (FREE THYROXINE) 0.85 ng/dL (0.58-1.64)
== END 2019-06-30 23:59 | disposition home or self-care (01) ==
LOC: LAB.N 11:24
PROVIDERS: ATTEND Family Medicine
DX: E04.1 Nontoxic single thyroid nodule (principal)
CPT/HCPCS: 36415; 84439; 84443; 84481; 86800

== ENCOUNTER 2019-07-31 15:01 | Outpatient (CLI) | payer MEDICARE, OTHER ==
--- NOTE | 2019-08-03 10:28 | Ultrasound Report ---
Reason: THYROID NODULE LT Procedure Date: 07/31/2019 Accession Number: [id number] / [id number] Procedure: US - Head or Neck Soft Tissue CPT Code: Final Report FULL RESULT: EXAM: THYROID ULTRASOUND EXAM DATE: 07/31/2019 03:40 PM. CLINICAL HISTORY: THYROID NODULE LT. Status post previous biopsy COMPARISON: HEAD OR NECK SOFT TISSUE 08/31/2017 11:16 AM FINE NEEDLE ASPIRATION 11/11/2017 1:33 PM. TECHNIQUE: Real time sonographic imaging of the thyroid was performed by the community dietitian. Multiple publications sales representative static images were saved for review. FINDINGS: THYROID GLAND: Right Lobe: 4.6 2.1 x 1.4 cm, volume 7.1 cc. Normal background echotexture. Right Lobe Nodules: 1. Mid medial 0.6 x 0.4 x 0.6 cm cystic solid unchanged 2. Inferior excised 0.5 x 0.6 cm cystic solid predominantly cystic unchanged Left Lobe: 4.7 x 1.8 x 2.4 cm, volume 10.6 cc. Normal background echotexture. Left Lobe Nodules: 1. Superior pole cystic solid 1 x 0.5 x 0.8 cm previously 1 x 0.5 x 0.8 cm. 2. Superior solid type hypoechoic 2.3 x 1.4 x 1.8 cm 3 cc previously 2.1 x 1.3 x 1.6 cm 2.3 cc. Isthmus: 0.3 cm AP. Isthmic Nodules: None. LYMPH NODES: No adenopathy demonstrated in the central or lateral compartment. OTHER: None. IMPRESSION: 1. Previously biopsied left nodule measuring slightly larger. 2. Other nodules stable Management recommendations are based on 2015 [employer] Management Guidelines for Adult Patients with Thyroid Nodules and Differentiated Thyroid Cancer. RADIA
== END 2019-07-31 15:02 | disposition home or self-care (01) ==
LOC: DI 15:01
PROVIDERS: ATTEND Family Medicine
DX: E04.2 Nontoxic multinodular goiter (principal)
CPT/HCPCS: 76536

== ENCOUNTER 2019-09-08 14:20 | Outpatient (CLI) | payer MEDICARE, OTHER ==
[2019-09-08 19:13] LABS: CALCIUM 8.8 mg/dL (8.5-10.3); CREATININE 0.7 mg/dL (0.4-1.0)
[2019-09-08 19:20] LABS: CREATININE,URINE 67.9 mg/dL; MICROALBUM/CREATININE RATIO,UR 70.7 ug/mg (<30.0); MICROALBUMIN,URINE 4.8 mg/dL (0-300.0)
[2019-09-08 19:48] LABS: HB2 TOTAL 11.6 g/dL; HEMOGLOBIN A1C 0.63 g/dL; HEMOGLOBIN A1C % 7.1 % (4.6-6.2)
== END 2019-09-08 23:59 | disposition home or self-care (01) ==
LOC: LAB.N 14:20
PROVIDERS: ATTEND Family Medicine
DX: E11.65 Type 2 diabetes mellitus with hyperglycemia (principal); Z79.4 Long term (current) use of insulin
CPT/HCPCS: 36415; 80048; 82043; 82570; 83036

== ENCOUNTER 2019-12-28 11:59 | Outpatient (CLI) | payer MEDICARE, OTHER | END 2019-12-28 12:00 | disposition critical access hospital (66) | LOC: EMS 11:59 | PROVIDERS: ATTEND Surgery | DX: Z03.89 Encounter for observation for other suspected diseases and conditions ruled out (principal) | CPT/HCPCS: A0425; A0427 ==

== ENCOUNTER 2019-12-28 12:23 | Emergency (ER) | payer MEDICARE, OTHER ==
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
[2019-12-28] MEDS ORDERED: SODIUM CHLORIDE 0.9% 1,000 ML IV ONE (13:02)
[2019-12-28] MEDS ORDERED: DEXAMETHASONE 10 MG/ML VIAL IVP STA (13:03)
[2019-12-28] MEDS ORDERED: hydrOXYzine PAMOATE 25 MG CAPSULE PO STA (13:04)
[2019-12-28] MEDS ORDERED: CETIRIZINE 10 MG TABLET PO STA (13:04)
[2019-12-28] MEDS ORDERED: INSULIN REGULAR HUMAN 100 UNIT/1 ML 10 ML MDV SUBQ STA (13:22)
[2019-12-28 14:21] LABS: ALBUMIN 4.4 g/dL (3.2-5.5); ALBUMIN/GLOBULIN RATIO 1.4 (1.0-2.2); BILIRUBIN,TOTAL 0.7 mg/dL (0.2-1.0); CALCIUM 9.1 mg/dL (8.5-10.3); CREATININE 0.7 mg/dL (0.4-1.0); TOTAL PROTEIN 7.6 g/dL (6.7-8.2)
[2019-12-28 15:14] VITALS: BP 141/87
== END 2019-12-28 15:32 | disposition home or self-care (01) ==
LOC: EDUNIT# → ED 12:23
DX: T63.451A Toxic effect of venom of hornets, accidental (unintentional), initial encounter (principal); Y93.01 Activity, walking, marching and hiking; Y92.007 Garden or yard of unspecified non-institutional (private) residence as the place of occurrence of the external cause; Z91.030 Bee allergy status; I10 Essential (primary) hypertension; E11.9 Type 2 diabetes mellitus without complications; Z79.4 Long term (current) use of insulin; Z79.02 Long term (current) use of antithrombotics/antiplatelets
CPT/HCPCS: 36415; 80053; 83690; 96374; 99284; A9270; J1815

== ENCOUNTER 2020-02-11 14:58 | Outpatient (CLI) | payer MEDICARE, OTHER ==
[2020-02-11 19:03] LABS: CALCIUM 8.8 mg/dL (8.5-10.3); CREATININE 0.7 mg/dL (0.4-1.0)
== END 2020-02-11 23:59 | disposition home or self-care (01) ==
LOC: LAB.WCP 14:58
PROVIDERS: ATTEND Family Medicine
DX: E11.65 Type 2 diabetes mellitus with hyperglycemia (principal); I10 Essential (primary) hypertension
CPT/HCPCS: 36415; 80048

== ENCOUNTER 2020-05-25 08:00 | Outpatient (CLI) | payer MEDICARE, OTHER ==
[2020-05-25 19:05] LABS: CALCIUM 9.3 mg/dL (8.5-10.3); CREATININE 0.7 mg/dL (0.4-1.0)
[2020-05-25 19:06] LABS: CREATININE,URINE 93.1 mg/dL; MICROALBUM/CREATININE RATIO,UR 120.3 ug/mg (<30.0); MICROALBUMIN,URINE 11.2 mg/dL (0-300.0)
[2020-05-25 20:22] LABS: HEMOGLOBIN A1c% 7.4 % (4.27-6.07)
== END 2020-05-25 23:59 | disposition home or self-care (01) ==
LOC: LAB.WCP 08:00
PROVIDERS: ATTEND Family Medicine
DX: E11.65 Type 2 diabetes mellitus with hyperglycemia (principal); Z79.4 Long term (current) use of insulin
CPT/HCPCS: 36415; 80048; 82043; 82570; 83036

== ENCOUNTER 2020-05-31 07:00 | Outpatient (CLI) | payer MEDICARE, OTHER ==
[2020-06-02 14:44] LABS: H. PYLORIS ANTIGEN STL NEGATIVE (Negative)
== END 2020-05-31 23:59 | disposition home or self-care (01) ==
LOC: LAB.R 07:00
PROVIDERS: ATTEND Family Medicine
DX: K29.70 Gastritis, unspecified, without bleeding (principal)
CPT/HCPCS: 81599; 82274; 83993; 87045; 87046; 87177; 87209; 87329; 87338; 87427; 87493